=== PATIENT | male | born 1970 | race Two or more races ===

== ENCOUNTER 2025-11-20 11:51 | Emergency (ER) | payer SELFPAY ==
[~2025-11-20] VITALS: Ht 167.6 cm; Wt 81.8 kg
[2025-11-20 12:10] VITALS: PULSE 105; RESP 17; TEMP 97.8; O2SAT 97
[2025-11-20 12:20] LABS: Hematocrit 44.4 % (41.0-53.0); Hemoglobin 15.1 g/dL (13.5-17.5); Mean Corpuscular Hemoglobin 30.3 pg (28.0-32.0); Mean Corpuscular Volume 89.1 fL (80.0-100.0); Nucleated Red Blood Cells % 0.0 %
[2025-11-20 12:22] LABS: Potassium 3.9 mmol/L (3.5-5.1)
[2025-11-20 12:23] LABS: Anion Gap 19 (5-15); Calcium 8.2 mg/dL (8.7-10.4); Carbon Dioxide 19 mmol/L (20-31); Chloride 107 mmol/L (98-107); Sodium 145 mmol/L (136-145)
[2025-11-20 12:28] LABS: BUN/Creatinine Ratio 18.7 (10.0-20.0); Blood Urea Nitrogen 20 mg/dL (9-23); Glucose 100 mg/dL (74-106)
--- NOTE | 2025-11-20 12:28 | ED.PDOC ---
HPI Comments 55 year-old male presents to the ED via EMS with a chief complaint of substernal chest pain S/P heavy ingestion of ETOH last night. Patient reports drinking X3 bottles of Tequila last night. Patient denies any PMHx or further symptoms of dizziness, weakness, SOB, cough, or N/V/D. Chief Complaint: Chest Pain Time Seen by MD: 12:03 Reviewed Notes: Medications, Allergies Allergies: Coded Allergies: NO KNOWN ALLERGIES (Unverified , 11/20/25) Information Source: Patient, Emergency Med Personnel Mode of Arrival: EMS Severity: Moderate Duration: Since onset Location: Substernal Onset: At Rest, With Light Exertion, With Heavy Exertion Past Medical History PAST MEDICAL HISTORY: Denies Surgical History: Denies all surgeries Social History Smoker: Non-Smoker Alcohol: Heavy Drugs: Denies Drug Use Lives In: Home Constitutional: denies: chills, diaphoresis, fatigue, fever, malaise, sweats, weakness, others EENTM: denies: blurred vision, double vision, ear bleeding, ear discharge, ear drainage, ear pain, ear ringing, eye pain, eye redness, hearing loss, mouth pain, mouth swelling, nasal discharge, nose bleeding, nose congestion, nose pain, photophobia, tearing, throat pain, throat swelling, voice changes, others Respiratory: denies: cough, hemoptysis, orthopnea, SOB at rest, shortness of breath, SOB with excertion, stridor, wheezing, others Cardiovascular: reports: chest pain; denies: dizzy spells, diaphoresis, Dyspnea on exertion, edema, irregular heart beat, left arm pain, lightheadedness, palpitations, PND, syncope, others Gastrointestinal: denies: abdomen distended, abdominal pain, blood streaked bowels, constipated, diarrhea, dysphagia, difficulty swallowing, hematemesis, melena, nausea, poor appetite, poor fluid intake, rectal bleeding, rectal pain, vomiting, others Genitourinary: denies: burning, dysuria, flank pain, frequency, hematuria, incontinence, penile discharge, penile sore, pain, testicle pain, testicle swelling, urgency, others Neurological: denies: dizziness, fainting, headache, left sided numbness, left sided weakness, numbness, paresthesia, pre-existing deficit, right sided numbness, right sided weakness, seizure, speech problems, tingling, tremors, weakness, others Musculoskeletal: denies: back pain, gout, joint pain, joint swelling, muscle pain, muscle stiffness, neck pain, others Integumetry: denies: bruises, change in color, change in hair/nails, dryness, laceration, lesions, lumps, rash, wounds, others Allergic/Immunocompromised: denies: Difficulty Healing, Frequent Infections, Hives, Itching, others Hematologic/Lymphatic: denies: anemia, blood clots, easy bleeding, easy bruising, swollen glands, others Endocrine: denies: excessive hunger, excessive sweating, excessive thirst, excessive urination, flushing, intolerance to cold, intolerance to heat, unexplained weight gain, unexplained weight loss, others Psychiatric: denies: anxiety, bipolar disorder, depression, hopeless, panic disorder, schizophrenia, sleepless, suicidal, others All Other Systems: Reviewed and Negative Physical Exam General Appearance: Moderate Distress HEENT: Normal ENT Inspection, Pharynx Normal, TMs Normal Neck: Full Range of Motion, Non-Tender, Normal, Normal Inspection Respiratory: Chest Non-Tender, Lungs Clear, No Accessory Muscle Use, No Respiratory Distress, Normal Breath Sounds Cardiovascular: Tachycardia Breast Exam: Deferred Gastrointestinal: No Organomegaly, Non Tender, No Pulsatile Mass, Normal Bowel Sounds, Soft Genitalia: Deferred Pelvic: Deferred Rectal: Deferred Extremities: No calf tenderness, Normal capillary refill, Normal inspection, Normal range of motion, Non-tender, No pedal edema Musculoskeletal : Apperance: Normal Neurologic: Alert, nurse discharge II-XII nml as Tested, No Motor Deficits, Normal Affect, Normal Mood, No Sensory Deficits Cerebellar Function: NOT DONE Reflexes: NOT DONE Skin: Dry, Normal Color, Warm Peripheral Pulses: 3+ Radial (R), 3+ Radial (L) Lymphatic: No Adenopathy EKG EKG : Pulse Rate (adult): 118 [place]: Normal Cardiac Rhythm: ST Block: None Hypertrophy: None ST: Normal Was a procedure done? Was a procedure done?: No CP Differential Dx Differential Diagnosis: A-fib, A-Flutter, Angina, Anxiety / Panic Attack, Atrial Dysrhythmia, Electrolyte Disorder Differential Diagnosis: HTN Essential Differential Diagnosis: Angina, Chest Wall Pain, Gastritis, Pneumonia Comment Substance Abuse, Ingestion of ETOH X-Ray, Labs, Meds, VS Vital Signs Date Time Temp Pulse Resp B/P (MAP) Pulse Ox O2 Delivery O2 Flow Rate FiO2 11/20/25 12:55 119 11/20/25 12:36 99 11/20/25 12:28 118 11/20/25 12:10 105 17 97 Room Air* 0 21 11/20/25 12:10 97.8 105 17 159/98 (118) 97 97.8 11/20/25 11:56 97.8 116 20 145/86 99 97.8 11/20/25 11:55 118 Lab Test 11/20/25 13:27 11/20/25 12:06 Range/Units Troponin I High Sensitivity 4 3 L </=54 ng/L White Blood Count 10.6 4.4-10.8 10^3/uL Red Blood Count 4.98 4.5-5.90 10^6/uL Hemoglobin 15.1 13.5-17.5 g/dL Hematocrit 44.4 41.0-53.0 % Mean Corpuscular Volume 89.1 80.0-100.0 fL Mean Corpuscular Hemoglobin 30.3 28.0-32.0 pg Mean Corpuscular Hemoglobin Concent 34.0 32.0-36.0 g/dL Red Cell Distribution Width 14.2 11.8-14.3 % Platelet Count 260 140-450 10^3/uL Mean Platelet Volume 8.2 6.9-10.8 fL Neutrophils (%) (Auto) 73.6 37.0-80.0 % Lymphocytes (%) (Auto) 21.1 10.0-50.0 % Monocytes (%) (Auto) 4.0 0.0-12.0 % Eosinophils (%) (Auto) 0.1 0.0-7.0 % Basophils (%) (Auto) 1.2 0.0-2.0 % Neutrophils # (Auto) 7.8 1.6-8.6 10 ^3/uL Lymphocytes # (Auto) 2.2 0.4-5.4 10 ^3/uL Monocytes # (Auto) 0.4 0-1.3 10 ^3/uL Eosinophils # (Auto) 0 0-0.8 10 ^3/uL Basophils # (Auto) 0.1 0-0.2 10 ^3/uL Nucleated Red Blood Cells 0.0 % Sodium Level 145 136-145 mmol/L Potassium Level 3.9 3.5-5.1 mmol/L Chloride Level 107 98-107 mmol/L Carbon Dioxide Level 19 L 20-31 mmol/L Anion Gap 19 H 5-15 Blood Urea Nitrogen 20 9-23 mg/dL Creatinine 1.07 0.700-1.30 mg/dL Glomerular Filtration Rate Calc 82 >90 mL/min BUN/Creatinine Ratio 18.7 10.0-20.0 Serum Glucose 100 74-106 mg/dL Calcium Level 8.2 L 8.7-10.4 mg/dL Current Medications Medications (Trade) Dose Ordered Sig/Andre Route Start Time Stop Time Status Last Admin Thiamine HCl 100 mg ONCE ONCE IV 11/20/25 12:30 11/20/25 12:31 DC 11/20/25 13:03 Sodium Chloride 1,000 ml @ 1,000 mls/hr Q1H ONCE IV 11/20/25 12:30 11/20/25 13:29 DC 11/20/25 13:02 Lorazepam (Ativan Inj) 2 mg ONCE ONCE IV 11/20/25 12:45 11/20/25 12:46 DC 11/20/25 13:03 Patient alert. Vitals stable. Has been drinking. Answering questions. Comfortable. Anxious. Was given Ativan. Establish intravenous access. Was given fluids. Cardiac marker within normal limits. Counseled patient on effects of drinking for 15 minutes. No leg swelling. No shortness a breath. No increase in respiratory rate. After he was calm clinical examination the heart shows heart rate to be within normal limits. No discoloration. No acute process. Was told to stopped drinking alcohol. Possible gastritis. Was given prescription of Protonix. Explained to the patient. Was told to follow up with his primary care physician. Was told to come back if there is any problem. Time of 1ST Reevaluation: 12:51 Reevaluation 1ST: Unchanged Patient Education/Counseling: Diagnosis, Treatment Family Education/Counseling: No Family Present SEPSIS Sepsis Screen Date sepsis recognized/suspect: Nov 20, 2025 Time Sepsis recognized/suspect: 1202 Recent Procedure: No On Antibiotic Therapy: No Respiratory Rate >20: No Heart Rate >90: No Temp<36 C (96.8 F) or >38.3 C: No SBP <90 or MAP <65 mmHG: No New Acute Mental Status Change: No Is the patient on CPAP, BIPAP,: No Physician Orders Chest Portable (11/20/25 11:57) Electrocardigram (11/20/25 11:57) Troponin-I Hs (11/20/25 14:57) Electrocardigram (11/20/25 14:57) Sodium Chloride 0.9% (11/20/25 14:30) Vital Signs Date Time Temp Pulse Resp B/P (MAP) Pulse Ox O2 Delivery O2 Flow Rate FiO2 11/20/25 12:55 119 11/20/25 12:36 99 11/20/25 12:28 118 11/20/25 12:10 105 17 97 Room Air* 0 21 11/20/25 12:10 97.8 105 17 159/98 (118) 97 97.8 11/20/25 11:56 97.8 116 20 145/86 99 97.8 11/20/25 11:55 118 Laboratory Tests Test 11/20/25 12:06 White Blood Count 10.6 10^3/uL (4.4-10.8) Medications Medications Dose Ordered Sig/Andre Route Start Time Stop Time Status Last Admin Dose Admin Lorazepam 2 mg ONCE ONCE IV 11/20/25 12:45 11/20/25 12:46 DC 11/20/25 13:03 Sodium Chloride 1,000 ml @ 1,000 mls/hr Q1H ONCE IV 11/20/25 12:30 11/20/25 13:29 DC 11/20/25 13:02 Thiamine HCl 100 mg ONCE ONCE IV 11/20/25 12:30 11/20/25 12:31 DC 11/20/25 13:03 Departure 1 Departure Time of Disposition: 15:16 Impression: Primary Impression: Alcohol abuse Additional Impression: Gastritis Qualified Codes: K29.00 - Acute gastritis without bleeding Disposition: 01 HOME / SELF CARE / HOMELESS Condition: Good e-Prescriptions Pantoprazole Sodium Sesquihydr (Protonix) 40 Mg Tab 40 MG PO DAILY for 5 Days, #5 TAB Prov: GAB RENNER MD 11/20/25 Discharged With: Self Critical Care Note Critical Care Time?: No Stability Stability form required: No Heart Score Heart Score: Heart Score Response (Comments) Value History Slightly Suspicious 0 EKG Normal 0 Age 45-64 1 Risk Factors 1 or 2 risk factors 1 Troponin N/A 0 Total 2 I personally scribed for GAB RENNER MD ([email or web address]) on 11/20/25 at 12:28. Electronically submitted by Ivonne Rasmussen ([facility]). GAB RENNER MD Nov 20, 2025 12:28
--- NOTE | 2025-11-20 12:38 | DVH ---
CLINICAL INFORMATION: Chest pain. TECHNIQUE: Single AP portable chest radiograph was obtained. COMPARISON: None FINDINGS: Lungs: Clear. Cardiac: Heart size is within normal limits. Pulmonary vasculature: Unremarkable. Mediastinum/alvarez: Unremarkable. Bones: No acute osseous abnormality identified. Other: No other significant findings. IMPRESSION: No evidence of acute disease in the chest.
[2025-11-20 13:00] VITALS: BP 134/90; RESP 13; O2SAT 97
[2025-11-20] MEDS: SODIUM CHLORIDE 0.9% 1,000 ML IV ONE ×2 (13:02→15:58)
[2025-11-20] MEDS: THIAMINE 100mg/ml INJ (200mg/2ml VIAL) IV ONE (13:03)
[2025-11-20] MEDS: LORazepam 2MG/ML-1ML VIAL IV ONE ×2 (13:03→17:35)
[2025-11-20] MEDS ORDERED: PANT40TA2 PO (15:17)
[2025-11-20 17:33] VITALS: PULSE 104
[2025-11-21] MEDS ORDERED: TAMS-35 PO (07:29)
[2025-11-21] MEDS ORDERED: HYDR10SY18 PO (07:29)
[2025-11-23] MEDS ORDERED: THIA100T13 PO (12:12)
[2025-11-23] MEDS ORDERED: GABA300T4 PO (12:12)
[2025-11-23] MEDS ORDERED: MULT-351 GT (12:12)
[2025-11-23] MEDS ORDERED: FOLI-119 PO (12:12)
--- NOTE | 2025-11-25 13:58 | ECG ---
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
== END 2025-11-20 19:02 | disposition home or self-care (01) ==
LOC: ER 11:51 → EDBD 11:51 → ER 19:02
DX: K52.9 Noninfective gastroenteritis and colitis, unspecified (principal); F10.10 Alcohol abuse, uncomplicated; Y90.9 Presence of alcohol in blood, level not specified
CPT/HCPCS: 36415; 71045; 80048; 84484; 85025; 96361; 96374; 96375; 99285; J2060; J3411; J7030; 93005